=== PATIENT | female | born 1990 | race American Indian/Alaskan Native ===

== ENCOUNTER 2019-06-25 18:28 | Emergency (ER) | payer SELFPAY ==
--- NOTE | 2019-06-25 21:13 | Event Note ---
ED Screening Note Date of service: 06/25/19 Time: 21:10 ED Screening Note: This is a 29 y.o. F. that presents to the ER with chest pain for 1 week. Reports pain as pressure intermittently. Denies palpitations, dizzy, fever, chills, cough, coryza, or congestion. Smokes hookah occasionally This initial assessment/diagnostic orders/clinical plan/treatment(s) is/are subject to change based on patients health status, clinical progression and re- assessment by fellow clinical providers in the ED. Further treatment and workup at subsequent clinical providers discretion. Patient/guardian urged not to elope from the ED as their condition may be serious if not clinically assessed and managed. Initial orders include: EKG CXR
--- NOTE | 2019-06-25 22:02 | XRay Report ---
CHEST 1 VIEW 06/25/2019 9:44 PM INDICATION / CLINICAL INFORMATION: MAIN: Chest Pain [id number] . COMPARISON: None available. FINDINGS: SUPPORT DEVICES: None. HEART / MEDIASTINUM: No significant abnormality. LUNGS / PLEURA: No significant pulmonary or pleural abnormality. No pneumothorax. ADDITIONAL FINDINGS: No significant additional findings. IMPRESSION: 1. No acute findings. Signer Name: Kaden Khalil MD Signed: 06/25/2019 9:57 PM Workstation Name: [email or web address]
[2019-06-26 01:38] VITALS: BP 119/76
== END 2019-06-26 01:40 | disposition home or self-care (01) ==
LOC: ED 18:28
DX: R07.89 Other chest pain (principal)
CPT/HCPCS: 71045; 93005; 93010; 99283